=== PATIENT | female | born 1975 | race Two or more races ===

== ENCOUNTER 2019-01-30 18:37 | Emergency (ER) | payer SELFPAY ==
[~2019-01-30] VITALS: Ht 162.6 cm; Wt 72.6 kg
--- NOTE | 2019-01-30 18:40 | NUR ---
ED Nurse Note: Pt brought in by ambulance due to general body pain and pt states she has an infection but unable to specify. Pt is AAO x4 and ambulatory with unlabored breathing. Noted pt to be yelling at staff and EMS. Also noticed pt to be talking to herself.
--- NOTE | 2019-01-30 19:10 | NUR ---
HAND-OFF: Report given to Thomas DESIR.
--- NOTE | 2019-01-30 19:30 | NUR ---
ED Nurse Note: initially, patient refused care, states that she does not want any care performed. Patient started to act belligerent and yelling loudly at staff, patient spit at staff. states that she did not want to be here. [facility] called
[2019-01-30] MEDS ORDERED: Omnipaque-300 100ml vial INJ PRN (19:45)
[2019-01-30] MEDS ORDERED: Metoclopramide 10mg/2ml Inj IVP ONE (19:45)
--- NOTE | 2019-01-30 19:46 | Emergency Room Report ---
History of Present Illness General Chief Complaint: General Complaint Source: Patient, EMS Present Illness HPI Patient is a 43-year-old female presented by EMS after increased abdominal discomfort. She reports having multiple episodes of vomiting and diarrhea. She states that she had prior history of type 2 diabetes. She had prior right- sided amputation. She reports having prior cholecystectomy. She states that she had been having multiple episodes of vomiting as well as diarrhea. She reports of some increased urinary urgency as well as difficulty with possible urinary infection. Allergies: Coded Allergies: No Known Allergies (Unverified , 01/30/19) Patient History Past Medical History: see triage record Reviewed Nursing Documentation: PMH: Agreed; PSxH: Agreed Review of Systems All Other Systems: negative except mentioned in HPI Physical Exam Vital Signs Date Time Temp Pulse Resp B/P (MAP) Pulse Ox O2 Delivery O2 Flow Rate FiO2 01/30/19 18:30 98.4 110 18 103/78 (86) 99 Room Air Sp02 EP Interpretation: reviewed, normal General Appearance: normal inspection, well appearing, no apparent distress, alert, GCS 15 Head: atraumatic ENT: normal ENT inspection, hearing grossly normal, normal voice Neck: normal inspection, full range of motion, supple, no bony tend Respiratory: normal inspection, lungs clear, normal breath sounds, no respiratory distress, no retraction, no wheezing Cardiovascular #1: regular rate, rhythm, no edema Gastrointestinal: normal inspection, normal bowel sounds, soft, no guarding, no hernia, other - mild diffuse tenderness Genitourinary: no CVA tenderness Musculoskeletal: normal inspection, back normal, normal range of motion Neurologic: normal inspection, alert, responsive, speech normal Psychiatric: judgement/insight normal, other - interrmittently hostile with staff Medical Decision Making Diagnostic Impression: Primary Impression: Acute abdominal pain ER Course Patient presented for abdominal pain. Differential diagnoses included ischemic bowel, appendicitis, perforated viscus, abdominal aortic aneurysm, inferior myocardial infarction, viral gastroenteritis among others.Because patient's complexity imaging studies, and laboratory testing ordered. Patient was seen and evaluated by me in the emergency department. Patient stated that she did not want any testing performed and decided to leave AGAINST MEDICAL ADVICE despite the risk of undiagnosed intra-abdominal pathology. The patient was advised risk benefits alternatives of leaving AGAINST MEDICAL ADVICE and he indicated understanding and all questions are answered patient still continued want to leave and signed AGAINST MEDICAL ADVICE. Despite risks including but not limited to disability and worsening of current lifestyle.Patient is advised that she can return if she changed her mind. Patient does not appear to be responding to any internal stimuli. Labs Test 01/30/19 20:10 White Blood Count 24.2 K/UL (4.8-10.8) Red Blood Count 4.72 M/UL (4.20-5.40) Hemoglobin 14.8 G/DL (12.0-16.0) Hematocrit 45.2 % (37.0-47.0) Mean Corpuscular Volume 96 FL (80-99) Mean Corpuscular Hemoglobin 31.3 PG (27.0-31.0) Mean Corpuscular Hemoglobin Concent 32.7 G/DL (32.0-36.0) Red Cell Distribution Width 12.0 % (11.6-14.8) Platelet Count 508 K/UL (150-450) Mean Platelet Volume 6.1 FL (6.5-10.1) Neutrophils (%) (Auto) % (45.0-75.0) Lymphocytes (%) (Auto) % (20.0-45.0) Monocytes (%) (Auto) % (1.0-10.0) Eosinophils (%) (Auto) % (0.0-3.0) Basophils (%) (Auto) % (0.0-2.0) Differential Total Cells Counted 100 Neutrophils % (Manual) 79 % (45-75) Lymphocytes % (Manual) 13 % (20-45) Monocytes % (Manual) 6 % (1-10) Eosinophils % (Manual) 1 % (0-3) Basophils % (Manual) 1 % (0-2) Band Neutrophils 0 % (0-8) Platelet Estimate Increased Platelet Morphology Normal Red Blood Cell Morphology Normal Prothrombin Time 9.3 SEC (9.30-11.50) Prothromb Time International Ratio 0.9 (0.9-1.1) Activated Partial Thromboplast Time 23 SEC (23-33) Sodium Level 136 MMOL/L (136-145) Potassium Level 4.7 MMOL/L (3.5-5.1) Chloride Level 102 MMOL/L (98-107) Carbon Dioxide Level 24 MMOL/L (21-32) Anion Gap 10 mmol/L (5-15) Blood Urea Nitrogen 31 mg/dL (7-18) Creatinine 1.4 MG/DL (0.55-1.30) Estimat Glomerular Filtration Rate 41.0 mL/min (>60) Glucose Level 171 MG/DL (74-106) Calcium Level 9.8 MG/DL (8.5-10.1) Total Bilirubin 0.2 MG/DL (0.2-1.0) Aspartate Amino Transf (AST/SGOT) 26 U/L (15-37) Alanine Aminotransferase (ALT/SGPT) 52 U/L (12-78) Alkaline Phosphatase 135 U/L (46-116) Troponin I 0.000 ng/mL (0.000-0.056) Total Protein 7.3 G/DL (6.4-8.2) Albumin 2.8 G/DL (3.4-5.0) Globulin 4.5 g/dL Albumin/Globulin Ratio 0.6 (1.0-2.7) Lipase 124 U/L (73-393) Last Vital Signs Date Time Temp Pulse Resp B/P (MAP) Pulse Ox O2 Delivery O2 Flow Rate FiO2 01/30/19 18:40 110 15 Room Air 01/30/19 18:30 98.4 103/78 (86) 99 Status: unchanged Disposition: AGAINST MEDICAL ADVICE José Miguel Ortiz MD Jan 30, 2019 19:46
--- NOTE | 2019-01-30 20:15 | NUR ---
ED Nurse Note: Patient started to act belligerent again, patient has signed AMA form, patient spit at staff 5 times. yelling "fuck you rashmi spit at your fucking face and beat your ass"
[2019-01-30 20:30] VITALS: BP 103/78
--- NOTE | 2019-01-30 20:30 | NUR ---
AMA: SEE AMA FORM.
[2019-01-30 20:31] LABS: HEMATOCRIT 45.2 % (37.0-47.0); HEMOGLOBIN 14.8 G/DL (12.0-16.0); MEAN CORPUSCULAR VOLUME 96 FL (80-99); PLATELET COUNT 508 K/UL (150-450); RED BLOOD COUNT 4.72 M/UL (4.20-5.40)
[2019-01-30 20:35] LABS: ANION GAP 10 mmol/L (5-15); BLOOD UREA NITROGEN 31 mg/dL (7-18); CALCIUM 9.8 MG/DL (8.5-10.1); CARBON DIOXIDE 24 MMOL/L (21-32); CHLORIDE 102 MMOL/L (98-107); CREATININE 1.4 MG/DL (0.55-1.30); POTASSIUM 4.7 MMOL/L (3.5-5.1); SODIUM 136 MMOL/L (136-145)
[2019-01-30 20:36] LABS: INR 0.9 (0.9-1.1)
[2019-01-30 20:39] LABS: WHITE BLOOD COUNT 24.2 K/UL (4.8-10.8)
[2019-01-30 20:40] LABS: ALANINE AMINOTRANSFERASE 52 U/L (12-78); ALBUMIN 2.8 G/DL (3.4-5.0); ALBUMIN/GLOBULIN RATIO 0.6 (1.0-2.7); ALKALINE PHOSPHATASE 135 U/L (46-116); ASPARTATE AMINO TRANSFERASE 26 U/L (15-37); BILIRUBIN,TOTAL 0.2 MG/DL (0.2-1.0)
== END 2019-01-30 20:30 | disposition left against medical advice (07) ==
LOC: EDBD 18:37 → EMR 19:00
DX: R10.9 Unspecified abdominal pain (principal); E11.9 Type 2 diabetes mellitus without complications; Z90.49 Acquired absence of other specified parts of digestive tract
CPT/HCPCS: 80053; 83690; 84484; 85007; 85025; 85610; 85730; 96374; 99284; J2765